=== PATIENT | female | born 1950 | race Caucasian/White ===

== ENCOUNTER 2017-04-27 18:58 | Emergency (ER) | payer MEDICARE, OTHER ==
[~2017-04-27] VITALS: Ht 170.2 cm; Wt 86.9 kg
[2017-04-27 19:37] LABS: BASOPHILS ABSOLUTE AUTO 0.01 K/mm3 (0.00-0.23); BASOPHILS PERCENT AUTO 0 % (0-2); EOSINOPHILS ABSOLUTE AUTO 0.16 K/mm3 (0.00-0.68); EOSINOPHILS PERCENT AUTO 2 % (0-6); Hematocrit 43.2 % (33.0-51.0); Hemoglobin 13.9 g/dL (11.5-16.0); IMMATURE GRAN ABSOLUTE AUTO 0.01 K/mm3 (0.00-0.10); IMMATURE GRAN PERCENT AUTO 0 % (0-1); LYMPHOCYTES ABSOLUTE AUTO 2.39 K/mm3 (0.84-5.20); LYMPHOCYTES PERCENT AUTO 30 % (21-46); MONOCYTES ABSOLUTE AUTO 0.57 K/mm3 (0.16-1.47); MONOCYTES PERCENT AUTO 7 % (4-13); Mean Corpuscular HGB 28.5 pg (26.0-34.0); Mean Corpuscular HGB Conc 32.2 g/dL (31.5-36.5); Mean Corpuscular Volume 89 fL (80-100); Mean Platelet Volume 11.2 fL (9.1-12.4); NEUTROPHILS ABSOLUTE AUTO 4.89 K/mm3 (1.96-9.15); NEUTROPHILS PERCENT AUTO 61 % (41-73); Platelet Count 322 K/mm3 (150-400); RDW Coefficient Variation 15.6 % (11.7-14.2); RDW Standard Deviation 50.7 fL (35.1-46.3); Red Blood Cell Count 4.88 M/mm3 (3.80-5.20); White Blood Cell Count 8.03 K/mm3 (4.00-11.30)
[2017-04-27 19:58] LABS: Alanine Aminotransfer (ALT/SGP 26 U/L (12-78); Albumin, Blood 3.9 g/dL (3.4-5.0); Albumin/Globulin Ratio 1.1 (0.8-1.8); Alk Phos 155 U/L (50-136); Anion Gap 9 mmol/L (6-16); Aspartate Aminotrans (AST/SGOT 19 U/L (12-37); Bilirubin, Total 0.3 mg/dL (0.1-1.0); Blood Urea Nitrogen 17 mg/dL (8-24); Bun/Creatinine Ratio 18.6 (12.0-20.0); CO2, Blood 23 mmol/L (21-32); Calcium, Blood 8.9 mg/dL (8.5-10.1); Chloride, Blood 111 mmol/L (98-108); Creatinine, Blood 0.91 mg/dL (0.40-1.00); Globulin, Blood 3.5 g/dL (2.2-4.0); Glomerular Filtration Rate >60 (60-); Glucose, Blood 107 mg/dL (70-99); Potassium, Blood 3.4 mmol/L (3.5-5.5); Sodium, Blood 143 mmol/L (136-145); Total Protein, Blood 7.4 g/dL (6.4-8.2); Troponin I <0.015 ng/mL (0.000-0.040)
[2017-04-27 20:14] LABS: Ethanol (Alcohol), Blood, Med 51 mg/dL
== END 2017-04-27 20:40 | disposition home or self-care (01) ==
LOC: ER 18:58
PROVIDERS: Emergency Medicine
DX: R00.0 Tachycardia, unspecified (principal); I25.10 Atherosclerotic heart disease of native coronary artery without angina pectoris; I10 Essential (primary) hypertension
CPT/HCPCS: 71020; 80053; 83690; 84484; 85025; 93005; 93010; 99284; G0480

== ENCOUNTER → 2018-09-27 | Outpatient (CLI) | payer MEDICARE, OTHER | END | disposition home or self-care (01) | LOC: LAB 13:10 → LAB SHORT 13:10 | DX: R31.9 Hematuria, unspecified (principal); R82.998 Other abnormal findings in urine | CPT/HCPCS: 87086 ==

== ENCOUNTER → 2018-12-13 | Outpatient (CLI) | payer MEDICARE, OTHER | END | disposition home or self-care (01) | LOC: PLD 14:10 → LAB SHORT 14:10 | DX: N84.0 Polyp of corpus uteri (principal); N95.0 Postmenopausal bleeding | CPT/HCPCS: 88305 ==

== ENCOUNTER 2020-12-03 10:30 | Emergency (ER) | payer MEDICARE, OTHER ==
[~2020-12-03] VITALS: Ht 170.2 cm; Wt 90.7 kg
[2020-12-03 11:22] LABS: BASOPHILS ABSOLUTE AUTO 0.02 K/mm3 (0.00-0.23); BASOPHILS PERCENT AUTO 0 % (0-2); EOSINOPHILS PERCENT AUTO 1 % (0-6); Hematocrit 44.5 % (33.0-51.0); Hemoglobin 14.6 g/dL (11.5-16.0); IMMATURE GRAN ABSOLUTE AUTO 0.02 K/mm3 (0.00-0.10); IMMATURE GRAN PERCENT AUTO 0 % (0-1); LYMPHOCYTES ABSOLUTE AUTO 1.89 K/mm3 (0.84-5.20); LYMPHOCYTES PERCENT AUTO 20 % (21-46); MONOCYTES ABSOLUTE AUTO 0.54 K/mm3 (0.16-1.47); MONOCYTES PERCENT AUTO 6 % (4-13); Mean Corpuscular HGB 29.9 pg (26.0-34.0); Mean Corpuscular HGB Conc 32.8 g/dL (31.5-36.5); Mean Corpuscular Volume 91 fL (80-100); Mean Platelet Volume 10.8 fL (9.1-12.4); NEUTROPHILS ABSOLUTE AUTO 6.93 K/mm3 (1.96-9.15); NEUTROPHILS PERCENT AUTO 73 % (41-73); Platelet Count 324 K/mm3 (150-400); RDW Coefficient Variation 13.5 % (11.7-14.2); RDW Standard Deviation 45.8 fL (35.1-46.3); Red Blood Cell Count 4.89 M/mm3 (3.80-5.20)
[2020-12-03 11:43] LABS: Alanine Aminotransfer (ALT/SGP 17 U/L (12-78); Albumin/Globulin Ratio 1.1 (0.8-1.8); Alk Phos 120 U/L (50-136); Anion Gap 7 mmol/L (6-16); Aspartate Aminotrans (AST/SGOT 10 U/L (12-37); Bilirubin, Total 0.5 mg/dL (0.1-1.0); Blood Urea Nitrogen 22 mg/dL (8-24); Bun/Creatinine Ratio 20.8 (12.0-20.0); CO2, Blood 25 mmol/L (21-32); Calcium, Blood 9.3 mg/dL (8.5-10.1); Chloride, Blood 107 mmol/L (98-108); Creatinine, Blood 1.06 mg/dL (0.40-1.00); Globulin, Blood 3.5 g/dL (2.2-4.0); Glomerular Filtration Rate 51 (60-); Glucose, Blood 129 mg/dL (70-99); Potassium, Blood 3.8 mmol/L (3.5-5.5); Sodium, Blood 139 mmol/L (136-145); Total Protein, Blood 7.5 g/dL (6.4-8.2); Troponin I <0.015 ng/mL (0.000-0.040)
[2020-12-03] MEDS ORDERED: PLAVIX75 MG PO (11:52)
[2020-12-03] MEDS ORDERED: AMLODIPINE BESYL5 MG PO (11:53)
[2020-12-03] MEDS ORDERED: LISI20 PO (11:53)
[2020-12-03] MEDS ORDERED: TOPROL XL50 M1 PO (11:54)
[2020-12-03 11:56] LABS: SARS-Cov-2 (COVID-19) PCR, MMC NEGATIVE (NEGATIVE)
== END 2020-12-03 13:29 | disposition home or self-care (01) ==
LOC: ER 10:30
PROVIDERS: Emergency Medicine; Student in an Organized Health Care Education/Training Program
DX: R07.9 Chest pain, unspecified (principal); K44.0 Diaphragmatic hernia with obstruction, without gangrene; I10 Essential (primary) hypertension; Z87.891 Personal history of nicotine dependence; Z20.822 Contact with and (suspected) exposure to COVID-19
CPT/HCPCS: 36415; 71045; 80053; 83880; 84484; 85025; 93005; 93010; 99284-25; U0004

== ENCOUNTER 2021-05-01 12:25 | Inpatient (IN) | payer MEDICARE, OTHER ==
[~2021-05-01] VITALS: Ht 170.2 cm; Wt 83.6 kg
[~2021-05-01 12:25] MED LIST: AMLODIPINE BESYL5 MG PO; LISI20 PO; PLAVIX75 MG PO; TOPROL XL50 M1 PO
[2021-05-01 13:07] LABS: BASOPHILS ABSOLUTE AUTO 0.04 K/mm3 (0.00-0.23); BASOPHILS PERCENT AUTO 0 % (0-2); EOSINOPHILS ABSOLUTE AUTO 0.02 K/mm3 (0.00-0.68); EOSINOPHILS PERCENT AUTO 0 % (0-6); Hematocrit 38.5 % (33.0-51.0); Hemoglobin 13.3 g/dL (11.5-16.0); IMMATURE GRAN ABSOLUTE AUTO 0.13 K/mm3 (0.00-0.10); IMMATURE GRAN PERCENT AUTO 1 % (0-1); LYMPHOCYTES ABSOLUTE AUTO 0.59 K/mm3 (0.84-5.20); LYMPHOCYTES PERCENT AUTO 4 % (21-46); MONOCYTES ABSOLUTE AUTO 0.29 K/mm3 (0.16-1.47); MONOCYTES PERCENT AUTO 2 % (4-13); Mean Corpuscular HGB 29.3 pg (26.0-34.0); Mean Corpuscular HGB Conc 34.5 g/dL (31.5-36.5); Mean Corpuscular Volume 85 fL (80-100); Mean Platelet Volume 11.5 fL (9.1-12.4); NEUTROPHILS ABSOLUTE AUTO 14.64 K/mm3 (1.96-9.15); NEUTROPHILS PERCENT AUTO 93 % (41-73); Platelet Count 310 K/mm3 (150-400); RDW Coefficient Variation 13.7 % (11.7-14.2); RDW Standard Deviation 42.6 fL (35.1-46.3); Red Blood Cell Count 4.54 M/mm3 (3.80-5.20); White Blood Cell Count 15.71 K/mm3 (4.00-11.30)
[2021-05-01 13:33] LABS: Albumin, Blood 1.9 g/dL (3.4-5.0); Albumin/Globulin Ratio 0.4 (0.8-1.8); Bilirubin, Total 1.5 mg/dL (0.1-1.0); Bun/Creatinine Ratio 21.6 (12.0-20.0); Calcium, Blood 8.5 mg/dL (8.5-10.1); Creatinine, Blood 2.27 mg/dL (0.40-1.00); Globulin, Blood 4.8 g/dL (2.2-4.0); Total Protein, Blood 6.7 g/dL (6.4-8.2)
[2021-05-01 13:51] LABS: Influenza A, PCR NEGATIVE (NEGATIVE); Influenza B, PCR NEGATIVE (NEGATIVE); Resp Syncytial Virus, PCR NEGATIVE (NEGATIVE); SARS-Cov-2 (COVID-19) PCR, MMC NEGATIVE (NEGATIVE)
[2021-05-01 13:58] LABS: Troponin I 1.38 ng/mL (0.000-0.040)
[2021-05-01 19:44] LABS: Adenovirus F 40/41 Not Detected (NOT DETECT); Astrovirus Not Detected (NOT DETECT); Campylobacter Sp Not Detected (NOT DETECT); Cryptosporidium Not Detected (NOT DETECT); Cyclospora Cayetanensis Not Detected (NOT DETECT); E. Coli O157 Not Detected (NOT DETECT); Entamoeba Histolytica Not Detected (NOT DETECT); Enteroaggregative E. coli-EAEC Not Detected (NOT DETECT); Enteropathogenic E. coli-EPEC Not Detected (NOT DETECT); Enterotoxigenic E. coli-ETEC Not Detected (NOT DETECT); Giardia Lamblia Not Detected (NOT DETECT); Norovirus GI/GII Not Detected (NOT DETECT); Plesiomonas Shigelloides Not Detected (NOT DETECT); Rotavirus A Not Detected (NOT DETECT); Salmonella Sp Not Detected (NOT DETECT); Sapovirus Not Detected (NOT DETECT); Shiga Toxin-prod E. coli-STEC Not Detected (NOT DETECT); Shigella/Enteroin E. coli-EIEC Not Detected (NOT DETECT); Vibrio Cholerae Not Detected (NOT DETECT); Vibrio Sp Not Detected (NOT DETECT); Yersinia Enterocolitica Not Detected (NOT DETECT)
[2021-05-02 04:57] LABS: Hematocrit 36.1 % (33.0-51.0); Hemoglobin 12.7 g/dL (11.5-16.0); Mean Corpuscular HGB 29.5 pg (26.0-34.0); Mean Corpuscular HGB Conc 35.2 g/dL (31.5-36.5); Mean Corpuscular Volume 84 fL (80-100); Mean Platelet Volume 11.4 fL (9.1-12.4); Platelet Count 307 K/mm3 (150-400); RDW Coefficient Variation 13.8 % (11.7-14.2); White Blood Cell Count 13.29 K/mm3 (4.00-11.30)
[2021-05-02 05:42] LABS: Bun/Creatinine Ratio 28.7 (12.0-20.0); Calcium, Blood 8.3 mg/dL (8.5-10.1); Creatinine, Blood 1.57 mg/dL (0.40-1.00); Potassium, Blood 2.7 mmol/L (3.5-5.5)
--- NOTE | 2021-05-02 07:37 | NUR ---
SHIFT SUMMARY PT A&OX4. SP02>90% ON 11L HIFLO. TELEMETRY READS AFIB, HR 110'S. PT HAS MEZA CATHETER DRAINING YELLOW URINE TO GRAVITY. PT INCONTINENT OF BOWEL X1 THIS SHIFT. LINEN CHANGED. PT DENIES PAIN. FLUIDS INFUSED PER EMAR. SLEPT MOST OF NIGHT. CALL LIGHT IN REACH.
[2021-05-02 07:48] LABS: Magnesium, Blood 1.8 mg/dL (1.6-2.4)
[2021-05-02 07:49] LABS: Phosphorus, Blood 2.8 mg/dL (2.5-4.9)
[2021-05-02 17:07] LABS: Influenza A, PCR NEGATIVE (NEGATIVE); Influenza B, PCR NEGATIVE (NEGATIVE); Resp Syncytial Virus, PCR NEGATIVE (NEGATIVE); SARS-Cov-2 (COVID-19) PCR, MMC NEGATIVE (NEGATIVE)
--- NOTE | 2021-05-02 18:09 | NUR ---
SHIFT SUMMARY PT HAS BEEN RESTING IN BED FOR THE DAY. PT HAS DENIED ALL C/O PAIN/DISCOMFORT. PT HAS REPOSITIONED SELF FREQUENTLY AND CALLS APPROPRIATELY FOR ASSISTANCE. SpO2 HAS REMAINED >90% ON 12L HFNC. HEART RATE AND RHYTHM HAS REMAINED A.FIB IN THE 110'S PER MONITOR, ALL OTHER VSS. PT HAS HAD LITTLE APPETITE. PT STATED A DIFFICULTY SWALLOWING PILLS WHEN GIVEN MEDICATION THIS AM, PHARMACY WAS CONSULTED AND APPROVED MED TO BE CRUSHED AND MIXED WITH FOOD/DRINK, PT WAS AMENABLE TO THIS. FAMILY MEMBER SHARED CONCERNS WITH THIS RN AND THEY WERE ADDRESSED, STATED SATISFACTION WITH OUTCOME. PT HAS HAD NO CHANGES TO CURRENT CONDITION.
[2021-05-03 04:27] LABS: BASOPHILS ABSOLUTE AUTO 0.03 K/mm3 (0.00-0.23); BASOPHILS PERCENT AUTO 0 % (0-2); EOSINOPHILS ABSOLUTE AUTO 0.11 K/mm3 (0.00-0.68); EOSINOPHILS PERCENT AUTO 1 % (0-6); Hemoglobin 13.5 g/dL (11.5-16.0); IMMATURE GRAN ABSOLUTE AUTO 0.14 K/mm3 (0.00-0.10); IMMATURE GRAN PERCENT AUTO 1 % (0-1); LYMPHOCYTES ABSOLUTE AUTO 0.58 K/mm3 (0.84-5.20); LYMPHOCYTES PERCENT AUTO 5 % (21-46); MONOCYTES ABSOLUTE AUTO 0.42 K/mm3 (0.16-1.47); MONOCYTES PERCENT AUTO 3 % (4-13); Mean Corpuscular HGB 29.3 pg (26.0-34.0); Mean Corpuscular HGB Conc 34.6 g/dL (31.5-36.5); Mean Corpuscular Volume 85 fL (80-100); Mean Platelet Volume 11.3 fL (9.1-12.4); NEUTROPHILS PERCENT AUTO 90 % (41-73); Platelet Count 430 K/mm3 (150-400); RDW Coefficient Variation 14.2 % (11.7-14.2); RDW Standard Deviation 43.8 fL (35.1-46.3); White Blood Cell Count 12.38 K/mm3 (4.00-11.30)
[2021-05-03 04:56] LABS: Albumin, Blood 1.8 g/dL (3.4-5.0); Anion Gap 9 mmol/L (6-16); Blood Urea Nitrogen 30 mg/dL (8-24); CO2, Blood 20 mmol/L (21-32); Calcium, Blood 8.8 mg/dL (8.5-10.1); Chloride, Blood 114 mmol/L (98-108); Glomerular Filtration Rate 55 (60-); Glucose, Blood 136 mg/dL (70-99); Magnesium, Blood 1.7 mg/dL (1.6-2.4); Phosphorus, Blood 1.8 mg/dL (2.5-4.9); Potassium, Blood 3.5 mmol/L (3.5-5.5); Sodium, Blood 143 mmol/L (136-145)
--- NOTE | 2021-05-03 05:07 | NUR ---
SHIFT SUMMARY NO ACUTE CHANGES THIS SHIFT. PT AXO. REMAINS AFIB, PT'S HOME DOSE OF PO METOPROLOL STARTED HR BEGAN TO TREND 130'S WITH SOME HTN. REMAINS ON 13L HIFLOW HUMIDIFIED. LUNG SOUNDS UNCHANGED, CRACKLES MINLY ON R SIDE. PT WITH PATENT MEZA. PRODUCED 1 BM. AND OTHERWISE HAS BEEN RESTING IN ROOM.
--- NOTE | 2021-05-03 17:42 | NUR ---
SHIFT SUMMARY PT HAS BEEN RESTING IN ROOM TODAY. FAMILY ARRIVED AT VISITING HOURS AND HAD QUESTIONS AND CONCERNS THAT WERE ADDRESSED, THEY EXPRESSED SATISFACTION AT HOW CONCERNS AND QUESTIONS WERE ADDRESSED. PT GOT UP TO BEDSIDE CHAIR FOR APPROXIMATELY ONE HOUR WITH MINIMAL ASSISTANCE USING A GAIT BELT AND WALKER. PT HAS DENIED ALL C/O PAIN AND DISCOMFORT. PT HAS REPOSITIONED SELF FREQUENTLY FOR DISCOMFORT AND PRESSURE. HEART RATE CLIMBED TO THE 140'S DURING TRANSPORT TO IMAGING AND RETURNED TO THE 110'S AFTER RETURNING TO ROOM. DURING AA BOWEL MOVEMENT THIS AFTERNOON, HEART RATE CLIMBED TO 140'S AGAIN AND SUSTAINED, TREATED PER EMAR. ALL OTHER VSS, NO OTHER CHANGES TO CONDITION.
--- NOTE | 2021-05-03 19:48 | NUR ---
CARE ASSUMPTION PT IS AXO X4 BUT PARANOID AND CONCERNED ABOUT THE NOISE OUTSIDE HER ROOM. O2 SATS >90% ON 10L NC. MEZA IN PLACE DRAINING DARK REJI URINE. PT AFEBRILE AND BP WNL. HR IS AFIB 108-115 AT THIS TIME. PT DENYING ANY PAIN OR NAUSEA.
[2021-05-04 04:12] LABS: BASOPHILS ABSOLUTE AUTO 0.02 K/mm3 (0.00-0.23); BASOPHILS PERCENT AUTO 0 % (0-2); EOSINOPHILS ABSOLUTE AUTO 0.22 K/mm3 (0.00-0.68); EOSINOPHILS PERCENT AUTO 2 % (0-6); Hematocrit 35.9 % (33.0-51.0); Hemoglobin 12.3 g/dL (11.5-16.0); IMMATURE GRAN ABSOLUTE AUTO 0.14 K/mm3 (0.00-0.10); IMMATURE GRAN PERCENT AUTO 1 % (0-1); LYMPHOCYTES ABSOLUTE AUTO 0.81 K/mm3 (0.84-5.20); LYMPHOCYTES PERCENT AUTO 7 % (21-46); MONOCYTES ABSOLUTE AUTO 0.45 K/mm3 (0.16-1.47); MONOCYTES PERCENT AUTO 4 % (4-13); Mean Corpuscular HGB 29.1 pg (26.0-34.0); Mean Corpuscular HGB Conc 34.3 g/dL (31.5-36.5); Mean Corpuscular Volume 85 fL (80-100); Mean Platelet Volume 11.4 fL (9.1-12.4); NEUTROPHILS ABSOLUTE AUTO 9.31 K/mm3 (1.96-9.15); NEUTROPHILS PERCENT AUTO 85 % (41-73); Platelet Count 485 K/mm3 (150-400); RDW Coefficient Variation 14.4 % (11.7-14.2); RDW Standard Deviation 44.3 fL (35.1-46.3); Red Blood Cell Count 4.22 M/mm3 (3.80-5.20); White Blood Cell Count 10.95 K/mm3 (4.00-11.30)
[2021-05-04 04:48] LABS: Magnesium, Blood 1.5 mg/dL (1.6-2.4)
[2021-05-04 04:49] LABS: Albumin, Blood 1.7 g/dL (3.4-5.0); Anion Gap 9 mmol/L (6-16); Blood Urea Nitrogen 26 mg/dL (8-24); Bun/Creatinine Ratio 30.2 (12.0-20.0); CO2, Blood 22 mmol/L (21-32); Calcium, Blood 8.8 mg/dL (8.5-10.1); Chloride, Blood 114 mmol/L (98-108); Creatinine, Blood 0.86 mg/dL (0.40-1.00); Glomerular Filtration Rate >60 (60-); Glucose, Blood 136 mg/dL (70-99); Phosphorus, Blood 2.3 mg/dL (2.5-4.9); Potassium, Blood 3.7 mmol/L (3.5-5.5); Sodium, Blood 145 mmol/L (136-145)
--- NOTE | 2021-05-04 05:34 | NUR ---
PT IS AXO X4 THIS SHIFT AND USES THE CALL LIGHT TO MAKE HER NEEDS KNOWN. PT MAINTAINING O2 SATS >90% ON 10L NC. TELE SHOWING SR 105-120 THIS SHIFT. BP WNL AND STABLE THIS SHIFT. PT AFEBRILE THIS SHIFT. PT CONTINUES TO BE ACT VERY PARANOID TO STAFF AND REQUESTING THAT HER DOOR BE SHUT DUE TO CONCERNS ABOUT WHAT IS GOING ON IN THE HALLWAY. PT DENYING ANY PAIN OR NAUSEA THIS SHIFT. WILL REPORT TO ONCOMING RN.
--- NOTE | 2021-05-04 11:56 | NUR ---
VSS on 10L with humidification. IV abx continued per orders. Junior draining stevan urine. K replaced PO. Tele: afib 90-110s. Briefly this AM was jumping up into 120-130s, but after AM PO meds rate was controlled.
--- NOTE | 2021-05-04 16:27 | NUR ---
Pt is desaturating to mid-high 80s, titrated up to 13L and still sustaining 88-89, RT called to possibly get on a different oxygen delivery method due to pt nose being stuffed up. Will contact MD for nasal spray.
--- NOTE | 2021-05-04 18:31 | NUR ---
Pt is A&O. VSS on 10-13L. Pt ended the day on 12L. Pt complained of nasal congestion, prn saline nasal spray given. [place] [facility] Pt HR jumped up when up to commode. HR mainly 100-110s today. When up it can jump up to 130-140s briefly. Junior in place and patent.
--- NOTE | 2021-05-04 21:24 | NUR ---
CARE ASSUMPTION PT IS ALERT AND ORIENTED, USES HER CALL LIGHT TO MAKE HER NEEDS KNOWN. PT'S O2 SATS WERE >92% ON 13L SO RT TITRATED O2 DOWN PT DOWN TO 10L AND PT DESATTED TO 86%. PT PLACED ON HER L SIDE AND HER O2 TITRATED TO 15L W O2 SATS IMPROVING TO 90% TELE SHOWING AFIB 100-120'S. PT GIVEN INCENTIVE SPIROMETER AND EDUCATED ON HOW TO USE IT HOWEVER, THE PT IS VERY UNMOTIVATED AND STATES THAT SHE WILL TRY TO USE IT TOMMORROW.
[2021-05-05 04:12] LABS: Hematocrit 35.5 % (33.0-51.0); Hemoglobin 12.1 g/dL (11.5-16.0)
[2021-05-05 04:49] LABS: Albumin, Blood 1.7 g/dL (3.4-5.0); Anion Gap 9 mmol/L (6-16); Blood Urea Nitrogen 23 mg/dL (8-24); Bun/Creatinine Ratio 28.9 (12.0-20.0); CO2, Blood 23 mmol/L (21-32); Calcium, Blood 8.6 mg/dL (8.5-10.1); Chloride, Blood 112 mmol/L (98-108); Glomerular Filtration Rate >60 (60-); Glucose, Blood 110 mg/dL (70-99); Magnesium, Blood 1.7 mg/dL (1.6-2.4); Phosphorus, Blood 3.4 mg/dL (2.5-4.9); Potassium, Blood 3.6 mmol/L (3.5-5.5); Sodium, Blood 144 mmol/L (136-145)
--- NOTE | 2021-05-05 05:56 | NUR ---
ORTHODONTIST VICE PRESIDENT SUMMARY PT IS AXO X4 AND USES HER CALL LIGHT TO MAKE HER NEEDS KNOWN. PT REQUIRING 15L NC TO MAINTAIN O2 SATS >90% FOR MOST OF THE SHIFT HOWEVER, THE PT HAS O2 SATS >90% ON 13L THIS AM. PT GIVEN INCENTIVE SPIROMETER AND INSTRUCTED HOW TO USE IT AND WHY SHE SHOULD BE USING IT HOWEVER THE PT DID NOT APPEAR INTERESTED EVEN WHEN I EXPLAINED THAT TIS IS HOW SHE GETS BETTER. THE PT STATED THAT SHE WOULD TRY TO USE THE IS "TOMMORROW". BP WNL AND STABLE THIS SHIFT. TELE SHOWING AFIB 105-125 THIS SHIFT. PT DENYING ANY PAIN OR NAUSEA THIS SHIFT. WILL REPORT TO ONCOMING RN.
[2021-05-05] MEDS ORDERED: OMEP20ER PO (16:11)
--- NOTE | 2021-05-05 18:00 | NUR ---
PT A/O X3, ANSWERING QUESTIONS APPROPRIATELY. PT HAS SLEPT A GOOD PORTION OF THE DAY. VSS. DENIES CP OR SOB. COARSE COUGH NOTED WITHOUT PRODUCTION. PT ABLE TO TAKE SMALL PILLS WHOLE, DOES NEED LARGE PILLS CRUSHED. NO RESPIRATORY DISTRESS NOTED T/O THE DAY. SHE HAS BEEN RESTING WELL ON BED. PRILOSEC ADDED TO EMAR, WHICH WAS ADMINISTERED AT THE END OF THIS SHIFT.
--- NOTE | 2021-05-05 21:58 | NUR ---
CARE ASSUMPTION PT IS AXO X4. PT SITTING IN BED WATCHING TV DENYING ANY PAIN OR NAUSEA. VSS AND O2 SATS >90% ON 6L NC. TELE SHOWING SR IN THE . PT CONVERTED TO SR APPROX AT 1600 TODAY.
--- NOTE | 2021-05-06 05:16 | NUR ---
NAUTICAL INSTRUMENT MECHANIC SUMMARY PT IS AXO X 4. O2 SATS >90% ON 6L NC. PT HAS HAD MUCH LESS COUGHING THIS SHIFT. BP WNL AND STABLE. TELE SHOWING SR IN THE 80'S W FRQUENT PVC'S. MEZA CATHETER TAKEN OUT LATE THIS SHIFT PER ORDER AND PT HAS YET TO VOID. WILL REPORT TO ONCOMING RN.
--- NOTE | 2021-05-06 12:35 | NUR ---
ASSUMPTION OF CARE Received report from off going RN. Pt is a/o x 4 with no c/o pain. She is resting in bed watching TV and is able to make her needs known.
--- NOTE | 2021-05-06 16:42 | NUR ---
SHIFT SUMMARY Pt is a/o x 4 but she can be impulsive so the bed alarm is on for her safety. Even with continued queing about using the call light to call for help she continues to attempt to self transfer. Education has been done by this nurse about fall prevention and use of the call light. She has a friend visiting at the bedside and he reports that he has been helping her at home for years and will be helping her when she goes home. Her tele was dcd this afternoon. She continues on the 6 lpm via NC. She is resting in bed now watching TV.
--- NOTE | 2021-05-07 05:28 | NUR ---
SHIFT SUMMARY PT ALERT AND ORIENTED X4. HARD OF HEARING, AND SLOW TO RESPOND. BP STABLE. PT DENIES CP. SATS OVER 97% ON 6L NC. LUNG SOUNDS DIMINISHED. OCCASIONAL, NON PRODUCTIVE COUGH. PT PREFERS MEDS CRUSHED IN JUICE. SBA FOR ADLS. IN BED SLEPEING WITH CALL ALARM AT SIDE, WILL CONTINUE TO MONITOR UNTIL RPEORT GIVEN
[2021-05-07] MEDS ORDERED: ATOR20 PO (12:02)
[2021-05-07] MEDS ORDERED: AMOCLA875 PO (12:03)
[2021-05-07] MEDS ORDERED: IPRAT-ALBUT 0.5-3 ML INH (12:14)
[2021-05-07] MEDS ORDERED: LACT PO (12:15)
[2021-05-07] MEDS ORDERED: ASPI81CH PO (12:16)
--- NOTE | 2021-05-07 16:03 | NUR ---
PT DISCHARGE PT'S MEDICATIONS FAXED TO PT'S PREFERRED PHARMACY. [facility] IN ROOM TO GO OVER HOME O2 ORDER PRIOR TO DISCHARGE. [facility] NOTIFIED OF ORDER FOR NEBULIZER. PT'S IV REMOVED. DISHCARGE INSTRUCTIONS PROVIDED TO PT AND PT'S FRIEND. DISCHARGE PAPEROWRK SIGNED. THIS RN BROUGHT PT TO PRIVATE VEHICLE BY GALEAR BY THIS RN, ON 3 L. PT ON OXYGEN FROM [facility] ONCE IN VEHICLE.
== END 2021-05-07 14:33 | disposition home health service (06) | DRG 871 ==
LOC: ER 12:25 → ERHOLD 14:41 → PCU 17:49
PROVIDERS: Emergency Medicine; Internal Medicine; ADMIT Internal Medicine
DX: A41.9 Sepsis, unspecified organism (principal); J18.9 Pneumonia, unspecified organism; J96.01 Acute respiratory failure with hypoxia; I21.A1 Myocardial infarction type 2; N17.9 Acute kidney failure, unspecified; I25.10 Atherosclerotic heart disease of native coronary artery without angina pectoris; Z20.822 Contact with and (suspected) exposure to COVID-19; R65.20 Severe sepsis without septic shock; I10 Essential (primary) hypertension; I48.91 Unspecified atrial fibrillation; F17.210 Nicotine dependence, cigarettes, uncomplicated; H91.90 Unspecified hearing loss, unspecified ear; E87.6 Hypokalemia; E78.5 Hyperlipidemia, unspecified; R45.1 Restlessness and agitation; F22 Delusional disorders; E83.39 Other disorders of phosphorus metabolism; E78.00 Pure hypercholesterolemia, unspecified; I25.2 Old myocardial infarction; Z95.5 Presence of coronary angioplasty implant and graft; Z79.02 Long term (current) use of antithrombotics/antiplatelets; Z79.899 Other long term (current) drug therapy
CPT/HCPCS: 0097U; 0241U; 36415; 51702; 71045; 71046; 80048; 80053; 80069; 83605; 83735; 83880; 84100; 84132; 84484; 85014; 85018; 85025; 85027; 87040; 93005; 93010; 94640; 94760; 94761; 94762; 96365; 96366; 96367; 97162; 97530; 99285-25; A9270; J0456; J0696; J1644; J3475; J3480; J7030; J7050

== ENCOUNTER 2022-09-01 10:38 | Day surgery (SDC) | payer MEDICARE, OTHER ==
[~2022-09-01] VITALS: Ht 170.2 cm; Wt 101.9 kg
[~2022-09-01 10:38] MED LIST changes: +AMOCLA875 PO; +ASPI81CH PO; +ATOR20 PO; +IPRAT-ALBUT 0.5-3 ML INH; +LACT PO; +OMEP20ER PO
--- NOTE | 2022-09-01 13:11 | NUR ---
09/01/22 1311 Janee Lizarraga NEBULIZER 4% LIDOCAINE GIVEN PRE PROCEDURE ORDERED BY MD RODRIGUEZ.
[2022-09-01 14:51] VITALS: BP 138/64
== END 2022-09-01 15:04 | disposition home or self-care (01) ==
LOC: ORSCSDS 10:38
PROVIDERS: Internal Medicine Gastroenterology
PROC: 0DBH8ZX Excision of Cecum, Via Natural or Artificial Opening Endoscopic, Diagnostic (ICD-10-PCS; principal; 2022-09-01 12:00)
PROC: 0D757ZZ Dilation of Esophagus, Via Natural or Artificial Opening (ICD-10-PCS; principal; 2022-09-01 12:00)
PROC: 0DBK8ZX Excision of Ascending Colon, Via Natural or Artificial Opening Endoscopic, Diagnostic (ICD-10-PCS; principal; 2022-09-01 12:00)
PROC: 0DJ08ZZ Inspection of Upper Intestinal Tract, Via Natural or Artificial Opening Endoscopic (ICD-10-PCS; principal; 2022-09-01 12:00)
DX: K59.09 Other constipation (principal); K21.9 Gastro-esophageal reflux disease without esophagitis; D12.0 Benign neoplasm of cecum; D12.2 Benign neoplasm of ascending colon; R13.14 Dysphagia, pharyngoesophageal phase; K44.9 Diaphragmatic hernia without obstruction or gangrene; K57.30 Diverticulosis of large intestine without perforation or abscess without bleeding; K64.8 Other hemorrhoids; I10 Essential (primary) hypertension; J44.9 Chronic obstructive pulmonary disease, unspecified; I48.91 Unspecified atrial fibrillation; E66.9 Obesity, unspecified; Z68.35 Body mass index [BMI] 35.0-35.9, adult; Z79.02 Long term (current) use of antithrombotics/antiplatelets; Z79.899 Other long term (current) drug therapy
CPT/HCPCS: 88305; J2001; J2250; J2704; J7120

== ENCOUNTER 2023-02-16 10:45 | Emergency (ER) | payer MEDICARE, OTHER ==
[~2023-02-16] VITALS: Ht 170.2 cm; Wt 95.2 kg
[2023-02-16 11:23] LABS: BASOPHILS ABSOLUTE AUTO 0.02 K/mm3 (0.00-0.23); BASOPHILS PERCENT AUTO 0 % (0-2); EOSINOPHILS ABSOLUTE AUTO 0.03 K/mm3 (0.00-0.68); EOSINOPHILS PERCENT AUTO 0 % (0-6); Hematocrit 43.1 % (33.0-51.0); Hemoglobin 14.2 g/dL (11.5-16.0); IMMATURE GRAN ABSOLUTE AUTO 0.02 K/mm3 (0.00-0.10); IMMATURE GRAN PERCENT AUTO 0 % (0-1); LYMPHOCYTES PERCENT AUTO 13 % (21-46); MONOCYTES ABSOLUTE AUTO 0.52 K/mm3 (0.16-1.47); MONOCYTES PERCENT AUTO 6 % (4-13); Mean Corpuscular HGB 28.9 pg (26.0-34.0); Mean Corpuscular HGB Conc 32.9 g/dL (31.5-36.5); Mean Corpuscular Volume 88 fL (80-100); Mean Platelet Volume 11.4 fL (9.1-12.4); NEUTROPHILS ABSOLUTE AUTO 6.71 K/mm3 (1.96-9.15); NEUTROPHILS PERCENT AUTO 80 % (41-73); Platelet Count 275 K/mm3 (150-400); RDW Coefficient Variation 13.2 % (11.7-14.2); RDW Standard Deviation 42.6 fL (35.1-46.3); Red Blood Cell Count 4.91 M/mm3 (3.80-5.20)
[2023-02-16] MEDS ORDERED: METO100 PO (11:24)
[2023-02-16] MEDS ORDERED: LISI20 PO (11:24)
[2023-02-16 11:51] LABS: Albumin, Blood 4.3 g/dL (3.4-5.0); Albumin/Globulin Ratio 1.2 (0.8-1.8); Bilirubin, Total 0.7 mg/dL (0.1-1.0); Bun/Creatinine Ratio 21.6 (12.0-20.0); Calcium, Blood 9.5 mg/dL (8.5-10.1); Creatinine, Blood 1.02 mg/dL (0.40-1.00); Globulin, Blood 3.7 g/dL (2.2-4.0); Potassium, Blood 3.9 mmol/L (3.5-5.5)
[2023-02-16 13:37] LABS: Source, Urine Clean Catch
[2023-02-16] MEDS ORDERED: AMLO5 PO (13:59)
[2023-02-16 14:15] LABS: Appearance, Urine Hazy (Clear); Bilirubin, Urine Neg (Neg); Blood, Urine Neg (Neg); Color, Urine Yellow (P-Yellow); Glucose Qualitative, Urine Neg (Neg); Ketones, Urine 1+ (Neg); Leukocyte Esterase, Urine Neg (Neg); Nitrite, Urine Neg (Neg); Protein, Urine 1+ (Neg); Urobilinogen, Urine NORM (Normal)
[2023-02-16 14:27] LABS: Bacteria Mod /hpf; Mucus Light (0-Heavy); Red Blood Cells, Urine 0-2 /hpf (0-2); Squamous Epithelial Cells Few /hpf (Few); White Blood Cells, Urine 0-2 /hpf (0-5)
[2023-02-16 14:30] VITALS: BP 162/133
== END 2023-02-16 14:48 | disposition home or self-care (01) ==
LOC: ER 10:45
PROVIDERS: Physician Assistant; Student in an Organized Health Care Education/Training Program
DX: I16.0 Hypertensive urgency (principal); I10 Essential (primary) hypertension; I25.2 Old myocardial infarction; E78.00 Pure hypercholesterolemia, unspecified; K21.9 Gastro-esophageal reflux disease without esophagitis; Z91.018 Allergy to other foods; Z91.010 Allergy to peanuts; Z79.02 Long term (current) use of antithrombotics/antiplatelets; Z79.82 Long term (current) use of aspirin; Z79.899 Other long term (current) drug therapy; Z87.891 Personal history of nicotine dependence
CPT/HCPCS: 71046; 74177; 80053; 81001; 83735; 83880; 84484; 85025; 87077; 87086; 87186; 93005; 93010; 96374-59; 99284-25; A9270; J0360; Q9967

== ENCOUNTER 2024-08-05 06:08 | Day surgery (SDC) | payer MEDICARE, OTHER ==
[~2024-08-05] VITALS: Ht 170.2 cm; Wt 100.4 kg
[~2024-08-05 06:08] MED LIST changes: +AMLO5 PO; +Balanced Salt Epinephrine Irrigation Solution 500 mL IR SCH; +Diazepam 5 MG Tab PO PRN; +Diazepam 5 MG Tab PO SCH; +Lidocaine HCl/Pf 1% 5 ML VIAL XX SCH; +METO100 PO; +Moxifloxacin HCL 0.5 MG/0.1 ML 0.4MLSYR RIGHTEYE SCH; +Ondansetron 4 MG SoluTab MM PRN; +PHENYLEPHRINE\\TROPICAMIDE\\TETRACAINE OPHTHALMIC DILATING SOLN RIGHTEYE PRN; +Povidone-Iodine 450 DROP/30 ML Solution ONE; +Povidone-Iodine 450 DROP/30 ML Solution RIGHTEYE SCH; +Tetracaine HCl/Pf 0.5% Opth Soln 4 ml ONE
[2024-08-05] MEDS ORDERED: Diazepam 10 MG Tab ONE (06:11)
[2024-08-05] MEDS ORDERED: Lidocaine HCl/Pf 1% 5 ML VIAL ONE (06:34)
[2024-08-05] MEDS ORDERED: METFORMIN HCL500 M3 PO (06:38)
[2024-08-05] MEDS ORDERED: SPIRONOLACTONE50 MG PO (06:39)
--- NOTE | 2024-08-05 06:48 | NUR ---
08/05/24 0648 Corrie Lay CALL LIGHT WITHIN REACH. PT ON CONTINOUS PULSE OXIMETER FOR MONITORING. TETRACAINE IN RIGHT EYE AT 0636 AND PLEDGETT IN AT 0637. PRIOR TO DIAZEPAM BEING GIVEN, PT STATES HER ANXIETY LEVEL IS 4/10.
--- NOTE | 2024-08-05 07:38 | NUR ---
08/05/24 0738 Inna Ness BP-120/64 P-60 SP02 98% W/ BB O2
[2024-08-05 07:59] VITALS: BP 123/65
--- NOTE | 2024-08-05 08:19 | NUR ---
08/05/24 0819 Zoraida Marquez FAMILY BROUGHT TO BEDSIDE. REVIEWED DISCHARGE INSTRUCTIONS AND FOLLOW UP WITH BOTH PT AND FAMILY. BOTH VERBALIZED UNDERSTANDING AND READINESS FOR DISCHARGE
== END 2024-08-05 08:19 | disposition home or self-care (01) ==
LOC: ORSCSDS 06:08
PROVIDERS: Student in an Organized Health Care Education/Training Program
PROC: 08RJ3JZ Replacement of Right Lens with Synthetic Substitute, Percutaneous Approach (ICD-10-PCS; principal; 2024-08-05 07:30)
DX: E11.36 Type 2 diabetes mellitus with diabetic cataract (principal); H25.813 Combined forms of age-related cataract, bilateral; H52.201 Unspecified astigmatism, right eye; H35.3132 Nonexudative age-related macular degeneration, bilateral, intermediate dry stage; H18.513 Endothelial corneal dystrophy, bilateral; Z87.891 Personal history of nicotine dependence; J44.9 Chronic obstructive pulmonary disease, unspecified; I10 Essential (primary) hypertension; K21.9 Gastro-esophageal reflux disease without esophagitis; Z79.82 Long term (current) use of aspirin; Z79.84 Long term (current) use of oral hypoglycemic drugs; Z79.899 Other long term (current) drug therapy
CPT/HCPCS: 82947; A9270; J2003; V2632

== ENCOUNTER 2024-08-12 06:20 | Day surgery (SDC) | payer MEDICARE, OTHER ==
[~2024-08-12] VITALS: Ht 170.2 cm; Wt 100.4 kg
[~2024-08-12 06:20] MED LIST changes: +METFORMIN HCL500 M3 PO; +Moxifloxacin HCL 0.5 MG/0.1 ML 0.4MLSYR LEFTEYE SCH; -Moxifloxacin HCL 0.5 MG/0.1 ML 0.4MLSYR RIGHTEYE SCH; +PHENYLEPHRINE\\TROPICAMIDE\\TETRACAINE OPHTHALMIC DILATING SOLN LEFTEYE PRN; -PHENYLEPHRINE\\TROPICAMIDE\\TETRACAINE OPHTHALMIC DILATING SOLN RIGHTEYE PRN; +Povidone-Iodine 450 DROP/30 ML Solution LEFTEYE SCH; -Povidone-Iodine 450 DROP/30 ML Solution RIGHTEYE SCH; +SPIRONOLACTONE50 MG PO
[2024-08-12] MEDS ORDERED: Diazepam 10 MG Tab ONE (06:30)
[2024-08-12] MEDS ORDERED: Lidocaine HCl/Pf 1% 5 ML VIAL ONE (06:48)
--- NOTE | 2024-08-12 07:00 | NUR ---
08/12/24 0700 Marvin Szymanski VALIUM 10 MG PO ADMINISTERED AT 0643. ANXIETY 07/07. TETRACAIN ADMINISTERED AT 0646, PLEDGET PLACED AT 0647.
--- NOTE | 2024-08-12 08:03 | NUR ---
08/12/24 0803 Marianela Ballesteros VITALS AT 0801 BP: 140/76 O2: 93% P: 62 BLOW BY OXYGEN AT 10 LITERS. PATIENT SHOWING NO S/S OF DISTRESS.
[2024-08-12 08:26] VITALS: BP 143/79
--- NOTE | 2024-08-12 08:41 | NUR ---
08/12/24 0841 Zoraida Marquez FRIEND SKIP BROUGHT TO BEDSIDE TO LISTEN TO DISCHARGE INSTRUCTIONS
== END 2024-08-12 08:40 | disposition home or self-care (01) ==
LOC: ORSCSDS 06:20
PROVIDERS: Student in an Organized Health Care Education/Training Program
PROC: 08RK3JZ Replacement of Left Lens with Synthetic Substitute, Percutaneous Approach (ICD-10-PCS; principal; 2024-08-12 08:00)
DX: E11.36 Type 2 diabetes mellitus with diabetic cataract (principal); H25.812 Combined forms of age-related cataract, left eye; H52.202 Unspecified astigmatism, left eye; Z96.1 Presence of intraocular lens; H35.3132 Nonexudative age-related macular degeneration, bilateral, intermediate dry stage; H18.513 Endothelial corneal dystrophy, bilateral; I10 Essential (primary) hypertension; J44.9 Chronic obstructive pulmonary disease, unspecified; Z79.84 Long term (current) use of oral hypoglycemic drugs; Z79.899 Other long term (current) drug therapy
CPT/HCPCS: 82947; A9270; J2003; V2632